=== PATIENT | male | born 1960 | race Caucasian/White ===

== ENCOUNTER 2022-07-31 08:03 | Outpatient (CLI) | payer OTHER, SELFPAY ==
[2022-07-31 11:47] LABS: Albumin* 4.2 g/dL (3.3-5.0); Chloride* 105 mmol/L (96-114)
[2022-07-31 11:48] LABS: Potassium* 4.3 mmol/L (3.6-5.1); Sodium* 140 mmol/L (135-149)
[2022-07-31 11:50] LABS: Aspartate Amino Transferase* 31 U/L (12-35); Bilirubin Total* 0.5 mg/dL (0.1-1.5); Carbon Dioxide* 29 mmol/L (20-32); Cholesterol* 157 mg/dL (90-199); Creatinine* 0.9 mg/dL (0.5-1.5); Estimated Glomerular Filt Rate 97 ml/min; Total Protein* 7.4 g/dL (6.0-8.3)
[2022-07-31 11:51] LABS: Alanine Aminotransferase* 27 U/L (4-50); Alkaline Phosphatase* 67 U/L (40-150); Blood Urea Nitrogen* 10 mg/dL (7-30); Glucose* 92 mg/dL (60-115); HDL Cholesterol* 60 mg/dL (>=40); LDL Cholesterol Calculated 62 mg/dL (<100); Triglycerides* 174 mg/dL (40-149)
[2022-08-03 15:24] LABS: Ferritin* 70.1 ng/mL (17.9-464.0)
== END 2022-07-31 08:04 | disposition home or self-care (01) ==
LOC: NFLDREF 08:03
PROVIDERS: PCP Family Medicine; Visit Provider Family Medicine
DX: Z00.00 Encounter for general adult medical examination without abnormal findings (principal); E78.5 Hyperlipidemia, unspecified; Z12.5 Encounter for screening for malignant neoplasm of prostate
CPT/HCPCS: 80053; 80061; 84153

== ENCOUNTER 2022-08-03 11:07 | Outpatient (CLI) | payer OTHER, SELFPAY | END 2022-08-03 11:08 | disposition home or self-care (01) | LOC: NFLDREF 11:08 | PROVIDERS: PCP Family Medicine; Visit Provider Family Medicine | DX: Z00.00 Encounter for general adult medical examination without abnormal findings (principal); E78.5 Hyperlipidemia, unspecified; Z78.9 Other specified health status | CPT/HCPCS: 82728 ==

== ENCOUNTER 2022-08-10 13:59 | Outpatient (CLI) | payer OTHER, SELFPAY | END 2022-08-10 14:00 | disposition home or self-care (01) | LOC: RAD 14:00 | PROVIDERS: PCP Family Medicine; Visit Provider Family Medicine | DX: R07.9 Chest pain, unspecified (principal); U07.1 COVID-19; I34.0 Nonrheumatic mitral (valve) insufficiency | CPT/HCPCS: 93306 ==

== ENCOUNTER 2023-08-16 10:55 | Outpatient (REF) | payer BC, SELFPAY ==
--- OUTSIDE RECORDS SUMMARY | 2023-08-17 06:42 | XMS_ITS | Clinical Summary ---
Author Name Unknown Organization [facility] Address [place], [place] [address] Care Team Providers Care Steel Worker Name Role Phone Guillermo Blas MD Primary Care Provider [phone] Allergies No known active allergies Medications Medication Sig Dispensed Refills Start Date End Date Status 0.9 % SODIUM CHLORIDE (NACL 0.9% ) 0.9 % Inject 1,000 mL intravenous continuous. 1000 mL 0 08/26/2012 Active Active Problems Problem Noted Date Diagnosed Date Insomnia Borderline high cholesterol CTS (carpal tunnel syndrome) Overview: much better with bracing and ergonomic keyboard Impaired fasting glucose Immunizations Name Administration Dates Next Due Influenza, IIV3 (Age >=3 years) 07/12/2008,05/11 Td (Age >=7 Years) 05/01/2007 Family History Medical History Relation Name Comments Good Health Brother 3 Other Brother 4 multiple sclero sis Good Health Daughter 3 Good Health Daughter 4 Cancer Father skin Heart Disease Father had pacemaker placed age 80 Other Father cataracts Good Health Mother Good Health Sister 3 Good Health Sister 4 Relation Name Status Comments Brother 1 Alive Brother 2 Alive Brother 3 Brother 4 Daughter 1 Alive Daughter 2 Alive Daughter 3 Daughter 4 Father (Age 85 (or so)) Mother Alive Sister 1 Alive Sister 2 Alive Sister 3 Sister 4 Social History Tobacco Use Types Packs/Day Years Used Date Smoking Tobacco: Never Alcohol Use Standard Drinks/Week Comments No 0 (1 standard drink = 0.6 oz pur e alcohol) 2 drinks per week Sex and Gender Information Value Date Recorded Sex Assigned at Not on file Gender Identity Not on file Sexual Orientation Not on file Obstetrics History Last Filed Vital Signs Vital Sign Reading Time Taken Comments Blood Pressure 122/84 08/26/2012 5:55 PM COM WRITER Pulse 55 08/26/2012 5:55 PM COM WRITER Temperature 36.3 ??C (97.4 ??F) 05/11/2007 9:32 AM CS T Respiratory Rate - - Oxygen Saturation 98% 08/26/2012 5:55 PM COM WRITER Inhaled Oxygen Concentration - - Weight 78 kg (172 lb) 07/26/2008 8:35 AM COM WRITER Height 172.7 cm (5' 8) 07/26/2008 8:35 AM COM WRITER Body Mass Index 26.15 07/26/2008 8:35 AM COM WRITER Plan of Treatment Health Maintenance Due Date Last Done Comments Tdap 11/30/1970 Depression screening for age 12+ 1971 HIV for age 15-65 11/30/1974 BMI (ht and wt on same day) for age 18+ 11/30/1977 Hepatitis C screening for ag e 18-79 11/30/1977 Colonoscopy through age 75 11/30/2004 Zoster (shingles) series for age 50+ (1 of 2) 11/30/2009 Tetanus booster 05/01/2017 05/01/2007 Lipids for age 45-75 08/26/2017 08/26/2012, 07/26/2008 COVID-19 vaccine series (2022- season) 2023 01/13/2022, 10/19/2020, 09/27/2020 Influenza for age 50-64 03/05/2023 07/12/19 09, 05/11/2007 Pneumococcal series for age 6-64 Aged Out No longer eligible b ased on patient's age to complete this topic Care Teams Steel Worker Relationship Specialty Start Date End Date Guillermo Blas MD [address] [place] [address] [address] [place] [address] [facility] - General 05/03/07
== END 2023-08-16 10:56 | disposition home or self-care (01) ==
LOC: NFLDREF 10:55
PROVIDERS: PCP Family Medicine; Referring Provider Family Medicine; Visit Provider Family Medicine
DX: E78.5 Hyperlipidemia, unspecified (principal); Z12.5 Encounter for screening for malignant neoplasm of prostate; Z13.228 Encounter for screening for other metabolic disorders
CPT/HCPCS: 80053; 80061; G0103

== ENCOUNTER 2023-09-06 08:33 | Outpatient (CLI) | payer BC, SELFPAY ==
--- NOTE | 2023-09-06 09:41 | W.ANESCHARGE ---
Anesthesia Charges Start Date/Time Anesthesia Start Date: 09/06/23 Anesthesia Start Time: 09:15 Stop Date/Time Anesthesia Stop Date: 09/06/23 Anesthesia Stop Time: 09:42
--- NOTE | 2023-09-06 11:41 | W.ANESCHARGE ---
Anesthesia Charges Start Date/Time Anesthesia Start Date: 09/06/23 Anesthesia Start Time: 09:15 Stop Date/Time Anesthesia Stop Date: 09/06/23 Anesthesia Stop Time: 09:42
== END 2023-09-06 08:34 | disposition home or self-care (01) ==
LOC: OP CLINIC 08:34
PROVIDERS: PCP Family Medicine; Visit Provider Surgery
DX: Z12.11 Encounter for screening for malignant neoplasm of colon (principal); K63.5 Polyp of colon
CPT/HCPCS: 45385; 811; 88305; J2704

== ENCOUNTER 2024-08-17 08:45 | Outpatient (CLI) | payer BC, SELFPAY | END 2024-08-17 08:46 | disposition home or self-care (01) | LOC: NFLDREF 08-19 03:07 | PROVIDERS: PCP Family Medicine; Referring Provider Family Medicine; Visit Provider Family Medicine | DX: E78.5 Hyperlipidemia, unspecified (principal); Z12.5 Encounter for screening for malignant neoplasm of prostate | CPT/HCPCS: 80053; 80061; G0103 ==